=== PATIENT | female | born 1935 | race Caucasian/White ===

== ENCOUNTER 2018-08-01 15:44 | Outpatient (CLI) | payer OTHER | END 2018-08-01 15:45 | disposition home or self-care (01) | LOC: LAB 15:44 | DX: Z51.81 Encounter for therapeutic drug level monitoring (principal); Z79.01 Long term (current) use of anticoagulants; I48.1 Persistent atrial fibrillation | CPT/HCPCS: 36415; 85610 ==

== ENCOUNTER 2018-08-08 15:24 | Outpatient (CLI) | END 2018-08-08 15:25 | disposition home or self-care (01) | LOC: LAB 15:24 | DX: I48.2 Chronic atrial fibrillation (principal); Z51.81 Encounter for therapeutic drug level monitoring; Z79.01 Long term (current) use of anticoagulants | CPT/HCPCS: 36415; 85610 ==

== ENCOUNTER 2018-08-15 14:06 | Outpatient (CLI) | END 2018-08-15 14:07 | disposition home or self-care (01) | LOC: LAB 14:06 | PROVIDERS: ATTEND Family Medicine | DX: I48.1 Persistent atrial fibrillation (principal); Z51.81 Encounter for therapeutic drug level monitoring; Z79.01 Long term (current) use of anticoagulants | CPT/HCPCS: 36415; 85610 ==

== ENCOUNTER 2018-08-22 13:08 | Outpatient (CLI) | payer OTHER | END 2018-08-22 13:09 | disposition home or self-care (01) | LOC: LAB 13:08 | PROVIDERS: ATTEND Family Medicine | DX: Z51.81 Encounter for therapeutic drug level monitoring (principal); Z79.01 Long term (current) use of anticoagulants; I48.1 Persistent atrial fibrillation | CPT/HCPCS: 36415; 85610 ==

== ENCOUNTER 2018-08-31 12:56 | Outpatient (CLI) | END 2018-08-31 12:57 | disposition home or self-care (01) | LOC: LAB 12:56 | PROVIDERS: ATTEND Family Medicine | DX: Z51.81 Encounter for therapeutic drug level monitoring (principal); Z79.01 Long term (current) use of anticoagulants; I48.1 Persistent atrial fibrillation | CPT/HCPCS: 36415; 85610 ==

== ENCOUNTER 2018-09-07 16:09 | Outpatient (CLI) | END 2018-09-07 16:10 | disposition home or self-care (01) | LOC: LAB 16:09 | PROVIDERS: ATTEND Family Medicine | DX: Z51.81 Encounter for therapeutic drug level monitoring (principal); Z79.01 Long term (current) use of anticoagulants; I48.1 Persistent atrial fibrillation | CPT/HCPCS: 36415; 85610 ==

== ENCOUNTER 2018-09-26 14:14 | Outpatient (CLI) | END 2018-09-26 14:15 | disposition home or self-care (01) | LOC: LAB 14:14 | PROVIDERS: ATTEND Family Medicine | DX: Z51.81 Encounter for therapeutic drug level monitoring (principal); Z79.01 Long term (current) use of anticoagulants; I48.1 Persistent atrial fibrillation | CPT/HCPCS: 36415; 85610 ==

== ENCOUNTER 2022-09-01 11:32 | Inpatient (IN) ==
[2022-09-01 14:26] LABS: SARS COV-2 RNA RAPID NAAT NEGATIVE (NEGATIVE)
[2022-09-01 14:35] LABS: BASOPHILS # (AUTO) 0.1 K/uL (0-0.2); BASOPHILS % (AUTO) 1.1 % (0.0-3.0); EOSINOPHILS # (AUTO) 0.5 K/ul (0.0-0.7); EOSINOPHILS % (AUTO) 8.4 % (0.0-7.0); HEMOGLOBIN 12.7 g/dl (12.0-16.0); IMMATURE GRANULOCYTE % (AUTO) 0.4 % (0.0-5.0); LYMPHOCYTES # (AUTO) 1.1 K/uL (0.60-3.4); LYMPHOCYTES % (AUTO) 19.5 (10.0-50.0); MEAN CORPUSCULAR HEMOGLOBIN 32.8 pg (27.0-31.0); MEAN CORPUSCULAR HGB CONC 34.3 (31.8-35.4); MEAN CORPUSCULAR VOLUME 95.6 fl (81.0-99.0); MONOCYTES # (AUTO) 0.6 K/uL (0.4-2.0); MONOCYTES % (AUTO) 10.9 (0-10); NEUTROPHILS # (AUTO) 3.4 K/ul (2.0-6.9); NEUTROPHILS % (AUTO) 59.7 % (42.2-75.2); PLATELET COUNT 199 10^3/uL (140-440); RDW COEFFICIENT OF VARIATION 12.1 % (11.6-14.8); RED BLOOD COUNT 3.87 10^6/ul (4.20-5.40)
[2022-09-01 14:42] LABS: BILIRUBIN,URINE Negative (NEGATIVE); CLARITY,URINE Clear (CLEAR); COLOR,URINE Yellow (YELLOW); GLUCOSE, URINE (UA) Negative (NEGATIVE); KETONES,URINE Negative (NEGATIVE); LEUKOCYTE ESTERASE ,URINE Trace (NEGATIVE); NITRITE,URINE Negative (NEGATIVE); PROTEIN,URINE Negative (NEGATIVE); URINE, BLOOD Negative (NEGATIVE); UROBILINOGEN,URINE 0.2 (0.2)
[2022-09-01 14:51] VITALS: BMI 32.4
[2022-09-01 14:51] LABS: ALANINE AMINOTRANSFERASE 14.8 U/L (0-35); ALBUMIN 4.27 g/dL (3.5-5.0); ASPARTATE AMINO TRANSFERASE 30.1 U/L (14-36); BILIRUBIN,TOTAL 0.63 mg/dL (0.2-1.3); BLOOD UREA NITROGEN 5.8 mg/dL (7-17); CALCIUM 8.67 mg/dL (8.4-10.2); CARBON DIOXIDE 30.3 mmol/L (22-30.0); CHLORIDE 95.9 mmol/L (98-107); CREATININE 0.67 mg/dL (0.60-1.30); GLUCOSE 108.7 mg/dL (74-106); POTASSIUM 4.12 mmol/L (3.5-5.1); SODIUM 130.4 mmol/L (134.5-145); TOTAL PROTEIN 7.15 g/dL (6.3-8.2)
--- NOTE | 2022-09-01 15:39 | DI ---
EXAM: SINGLE VIEW OF THE CHEST HISTORY: Shortness of breath. COMPARISON: Chest x-ray 07/03/2020 FINDINGS: Cardiomediastinal silhouette is unchanged at upper limit of normal for size. There is no p neumothorax or effusion. There is no consolidation, nodule or mass. The osseous structures demonstr ate degenerative disease. There are calcified granulomas. There is stable mild interstitial opaciti es. IMPRESSION: No acute cardiopulmonary process with stable mild cardiomegaly
--- NOTE | 2022-09-01 15:50 | CT ---
CT ABDOMEN AND PELVIS HISTORY: Flank pain. TECHNIQUE: Contiguous axial tomographic sections were obtained from the dome of the diaphragm throug h the ischial tuberosities. Coronal and sagittal reformats were then performed. Automatic exposure control was utilized for dose reduction technique. COMPARISON: None. FINDINGS: There is limited evaluation of the visceral organs/structures in the absence of IV contras t. LOWER CHEST: There is multichamber cardiomegaly and heavy calcifications of the mitral valve. LIVER: No gross masses. Limited evaluation. Punctate multi focal calcified granulomata noted. Hepat ic nodularity suggests underlying cirrhosis. GALLBLADDER/BILIARY: There is cholelithiasis. Sub-centimeter stones are present. Multiple stones ar e packed in the distal CBD and mid CBD as well as the cystic duct. No upstream dilatation detected. PANCREAS: Normal contour. Normal caliber main pancreatic duct. SPLEEN: Multiple granuloma are present. Normal size. ADRENALS: Normal size and shape without nodularity. KIDNEYS: Absent left kidney. There are several subcentimeter hypodensities in the right kidney too s mall to characterize by CT but probably representing cysts. Half exophytic low density probable cyst 12 mm anterior aspect right kidney. No renal stones. No hydronephrosis. No right ureteral dilatat ion. There is no significant perinephric stranding to suggest pyelonephritis as questioned clinicall y. The left nephrectomy bed is unremarkable. Limited evaluation for mass. PERITONEUM/MESENTERY: No free fluid, free air or mesenteric inflammatory change. No loculated fluid c ollection. VASCULATURE: Nonaneurysmal aorta. The IVC is distended possibly on the basis of cor pulmonale . [place] evaluation. LYMPH NODES: No pathologically enlarged lymph nodes by CT size criteria. BOWEL: No bowel obstruction. The appendix is identified and has a normal diameter. Variable decompres ginny of the colon limits evaluation, no colitis or acute diverticulitis detected. URINARY BLADDER: The bladder has normal contours and wall thickness. REPRODUCTIVE: Multiple calcified fibroids are noted throughout the uterus. 2 cm low density focus le ft ovary. Small fat containing umbilical hernia. Multilevel degenerative disc disease of the lumbar spine. Moderate superior endplate compression deformity of L1, age indeterminate. Multilevel facet arthrosis lumbar spine. Left hip dynamic hip screw and intramedullary lizette noted. MUSCULOSKELETAL: No acute or suspicious osseous lesions. IMPRESSION: 1. Choledocholithiasis. Multiple stones packed within the CBD. There is a cystic duct stone as well as multiple stones within the otherwise unremarkable gallbladder. No evidence of acute cholecystiti s. 2. Nodular hepatic contour may suggest cirrhosis. 3. Right renal hypodensities suggesting cysts. No evidence of renal calculus or hydronephrosis. No ureteral calculus. Solitary right kidney. 4. Multichamber cardiomegaly, cyst findings suggest cor pulmonale 5. Age indeterminate superior endplate compression deformity of L1, correlate clinically. 6. Other ancillary findings as above. All CT scans are performed using dose optimization techniques as appropriate to the performed exam an d include at least one of the following: Automated exposure control, adjustment of the mA and/or kV according t o size, and the use of iterative reconstruction technique.
[2022-09-01] MEDS: ROCEPHIN 1 GM/50 ML D5W 1 GM/50 ML BAG IV SCH (16:17)
[2022-09-01] MEDS: SORBITRATE PO SCH (18:00)
[2022-09-01] MEDS: NEURONTIN PO SCH (21:13)
[2022-09-01] MEDS: LOVENOX SUBCUT SCH (21:13)
[2022-09-01] MEDS: SEROQUEL PO SCH (21:13)
[2022-09-02] MEDS ORDERED: TYLENOL PO PRN (05:20)
[2022-09-02] MEDS: ROCEPHIN 1 GM/50 ML D5W 1 GM/50 ML BAG IV SCH (08:41)
[2022-09-02] MEDS: NEURONTIN PO SCH ×3 (08:42→20:16)
[2022-09-02] MEDS: SORBITRATE PO SCH ×2 (08:42→14:51)
[2022-09-02] MEDS: ALDACTONE PO SCH (08:42)
--- NOTE | 2022-09-02 11:14 | RS.PTINEVL ---
Subjective Patient information Date of Evaluation: 09/02/22 Date of Arrival on Unit: 09/01/22 Admitted From:: Home Diagnosis: pyelonephritis, encephalopathy Usual Living Arrangement: With Others Living Arrangement Comments: has helpers during the day and son stays with her at night. Home Environment: House and Level/No stairs Medical History: Hypertension, COPD, CHF, Arthritis (OA as well as RA) and Vascular Disease (PVD) Medical History Comments:: ascites, alcohol abuse, Afib, depressive disorder, anxiety, mitral regurgitation, neuropathy, ulcerative colitis Medications: see chart Subjective Information/ Patient Comments:: pt states that she hasn't walked much since she had a fall 3 yrs ago. States that she uses rolling walker at home and amb with son to help her. pt reports she uses a w/c if she leaves her home. Level of function Prior to this admission, the patient could do the following:: Partially Dependent Ambulation Abilities prior to this admission: pt had assist with ADL's and amb with someone with her with rwx. Current Equipment Used at Home: wheelchair, shower chair, Interventions Objective Patient Orientation: Person and Place Current Interventions: IV's and Telemetry Observation: Dark hemosiderin stain BLE with edema noted in BLE non pitting Range of Motion ROM Right Upper Extremity AROM: WFL's Left Upper Extremity AROM: WFL's Right Lower Extremity AROM: WFL's Left Lower Extremity AROM: WFL's Muscle Strength Muscle Strength Right Upper Extremity: Mild Weakness (grossly 4/5 ) Left Upper Extremity: Mild Weakness (grossly 4/5 ) Right Lower Extremity: Mild Weakness (hip flex 4-/5 ,knee flex/ext 4/5 ankle 4/5) Left Lower Extremity: Mild Weakness Comments:: hip flex 4-/5, knee flex/ext 3+/5, ankle 4/5 Sensation Sensation Right Upper Extremity: Intact/Normal Left Upper Extremity: Intact/Normal Right Lower Extremity: Intact/Normal Left Lower Extremity: Intact/Normal Palpation Palpation Findings: Tenderness (L knee ) Balance Sitting Balance and Reactions Static Sitting Balance: Fair Dynamic Sitting Balance: Fair Standing Balance and Reactions Static Standing Balance: Poor Dynamic Standing Balance: Poor Functional Mobility Bed Mobility Comments:: pt seen sitting up in chair Transfers Sit to Stand: Min Assist Stand to Sit: Min Assist Stand Pivot Transfers: Min Assist Safety Awareness Safety Awareness: Poor IVETTE INDEX SCORE: n/a Ambulation Ambulation Assistive Device Used: Rolling Walker Orthotic/Prosthetic Device: No Distance: 15ft Assistance needed with Ambulation: Min Assist (x 1 +1 for IV), 1 person assist a nd 2 person assist Quality of Ambulation: amb with min x 1 + 1 for IV Gait Deviations: Wide Based gait, Shuffling gait and Forward posture Ambulation Comments: pt amb with antalgic gait with difficulty advancing LLE. Factors Affecting Ambulation: Decreased Balance, Pain, Weakness, Decreased Coordination, Decreased Safety, Cognitive Status and Limited Endurance Treatment time Time with patient Length of Evaluation: 26 Total treatment time: 31 Patient Education Education Patient Education: Education of diagnosis and Home Exercise Program Teaching Recipient: Patient Teaching Methods: Discussion Assessment Assessment Problem List:: Decreased level of function, Requires training/education, Decreased safety/Risk of falls, Weakness, Pain limits previous level of function and Cognitive status limits abilities Rehab Potential: Fair Further Therapy Indicated?: Yes Candidate for Swing Bed for Therapy Services?: Feel pt may not be a candidate for swing bed due to prior level of function. Evaluation Complexity: HISTORY: Medium, EXAM OF BODY SYSTEMS: Medium, CLINICAL PRESENTATION: Medium and CLINICAL DECISION MAKING: Medium Patient's Goal(s): Be able to walk better (but I don't think I can) Short Term Goals GOAL #1: pt demonstrate rolling and scooting in bed with bedrails independently. Goal to be met by: 09/04/22 GOAL #2: Transfer sup to/from sit CGA Goal to be met by: 09/04/22 GOAL #3: Transfer sit to/from stand CGA Goal to be met by: 09/04/22 GOAL #4: pt amb with rwx with CGA to min x 1 50ft Goal to be met by: 09/04/22 GOAL #5: Improve BLE strength 4/5 Goal to be met by: 09/04/22 Manufacturing Intern Goals GOAL #1: Transfer sup to/from sit to/from stand SBA Goal to be met by: 09/06/22 GOAL #2: pt amb 75 ft with rwx with CGA x 1 Goal to be met by: 09/06/22 GOAL #3: Improve dyn stand balance fair- Goal to be met by: 09/06/22 Plan Plan of Care: Therapeutic EX and Therapeutic Activity Other:: gait training Frequency of Treatment: 1-2 X day, as tolerated Duration of Treatment: 5 days Anticipated Discharge Destination: Home Treatment Diagnosis (ICD 10 Codes): impaired balance R 26.81 gait difficulty R 26.2 L knee pain weakness M62.81 Has the Physician been added for Co-signature?: Yes
[2022-09-02] MEDS: LOVENOX SUBCUT SCH (20:15)
[2022-09-02] MEDS: SEROQUEL PO SCH (20:16)
[2022-09-03 04:56] LABS: BASOPHILS # (AUTO) 0.1 K/uL (0-0.2); EOSINOPHILS # (AUTO) 0.5 K/ul (0.0-0.7); EOSINOPHILS % (AUTO) 9.8 % (0.0-7.0); HEMOGLOBIN 12.1 g/dl (12.0-16.0); IMMATURE GRANULOCYTE % (AUTO) 0.4 % (0.0-5.0); LYMPHOCYTES # (AUTO) 1.3 K/uL (0.60-3.4); LYMPHOCYTES % (AUTO) 26.1 (10.0-50.0); MEAN CORPUSCULAR HEMOGLOBIN 32.5 pg (27.0-31.0); MEAN CORPUSCULAR HGB CONC 33.6 (31.8-35.4); MEAN CORPUSCULAR VOLUME 96.8 fl (81.0-99.0); MONOCYTES # (AUTO) 0.6 K/uL (0.4-2.0); NEUTROPHILS # (AUTO) 2.6 K/ul (2.0-6.9); NEUTROPHILS % (AUTO) 51.7 % (42.2-75.2); PLATELET COUNT 185 10^3/uL (140-440); RED BLOOD COUNT 3.72 10^6/ul (4.20-5.40); WHITE BLOOD COUNT 4.99 K/ul (4.6-10.2)
[2022-09-03 05:08] LABS: ALANINE AMINOTRANSFERASE 13.8 U/L (0-35); ALBUMIN 3.82 g/dL (3.5-5.0); ALKALINE PHOSPHATASE 117.5 U/L (53-141); ASPARTATE AMINO TRANSFERASE 28.1 U/L (14-36); BILIRUBIN,TOTAL 0.41 mg/dL (0.2-1.3); BLOOD UREA NITROGEN 7.7 mg/dL (7-17); CALCIUM 8.78 mg/dL (8.4-10.2); CARBON DIOXIDE 27.7 mmol/L (22-30.0); CREATININE 0.7 mg/dL (0.60-1.30); GLUCOSE 105.1 mg/dL (74-106); POTASSIUM 4.26 mmol/L (3.5-5.1); SODIUM 133.5 mmol/L (134.5-145); TOTAL PROTEIN 6.46 g/dL (6.3-8.2)
[2022-09-03] MEDS: ALDACTONE PO SCH (08:53)
[2022-09-03] MEDS: NEURONTIN PO SCH ×3 (08:54→20:25)
[2022-09-03] MEDS: SORBITRATE PO SCH ×2 (08:54→15:56)
[2022-09-03] MEDS ORDERED: NITROSTAT SL PRN (09:14)
[2022-09-03] MEDS ORDERED: ATROPINE SULFATE PFS IVP PRN (09:14)
[2022-09-03 09:15] LABS: CHOLESTEROL 164.7 mg/dL (0-200); HDL CHOLESTEROL 62.5 mg/dL (35-80); TRIGLYCERIDES 103.7 mg/dL (0-150)
[2022-09-03 09:47] LABS: THYROID STIMULATING HORMONE 2.72 uIU/L (0.465-4.68)
[2022-09-03] MEDS ORDERED: ELIQUIS PO ONE (15:30)
--- NOTE | 2022-09-03 15:51 | CONS ---
DATE OF CONSULTATION: 09/03/22 REASON FOR CONSULTATION: Atrial fibrillation HISTORY OF PRESENT ILLNESS: 87 year old white female hospitalized on 09/01/22 with acute pyelonephritis encephalopathy. Patient is a poor historian. REVIEW OF SYSTEMS: CONSTITUTIONAL: No fever or chills. Appetite seems to have improved. Generalized aches and pains. HEENT: Eyes: No visual changes. No eye pain. No eye discharge. ENT: No sinus drainage. No epistaxis. No sinus pain. No sore throat. No odynophagia. No ear pain. No congestion. RESPIRATORY: No cough, no congestion. No hemoptysis. No shortness of breath. CARDIOVASCULAR: No chest pain. No PND. No orthopnea. GASTROINTESTINAL: No abdominal pain. No nausea or vomiting. No diarrhea or constipation. No hematemesis. No hematochezia. GENITOURINARY: No urgency. No frequency. No dysuria. No hematuria. No obstructive symptoms. No discharge. No pain. No significant abnormal bleeding. MUSCULOSKELETAL: No musculoskeletal pain. No joint swelling. NEUROLOGICAL: No headache. No neck pain. No syncope. No seizures. No dizziness. PSYCHIATRIC: Not anxious. No depression. No suicidal thoughts. No homicidal thoughts. SKIN: No rash. No lesions. No wounds. ENDOCRINE: No unexplained weight loss. No weight gain. HEMATOLOGIC/LYMPHATIC: No anemia. No purpura. No petechiae. No prolonged or excessive bleeding. No palpable lymph nodes. MEDICATIONS: Gabapentin Sorbitrate Sinequan Aldactone ALLERGIES: PENICILLIN, NITROFURANTOIN, RED DYE, SULFA PAST MEDICAL HISTORY: Ascites Liver cirrhosis Atrial fib CHF COPD Depressive disorder GI problem Hypertension Mitral regurgitation Osteoearthritis Peripheral vascular disease Rheumatoid arthritis Seasonal allergies Ulcerative colitis SOCIAL/PERSONAL/FAMILY HISTORY: Patient lives by herself with the help of her daughter and son. Nonsmoker. No alcohol abuse. PHYSICAL EXAMINATION: GENERAL: The patient seems to be oriented to place and person. VITAL SIGNS: Temperature 96.9, pulse 60, respiratory rate 16, blood pressure 122/50, pulse ox 95%. HEENT: Head normocephalic, atraumatic. Eyes: Extraocular muscles are intact. Pupils are equal, round and reactive to light and accommodation. Ears: No lesions. Nose appeared normal. Throat: No exudate or erythema. NECK: Supple. LUNGS: Decreased breath sounds but clear No JVD, no carotid bruit. HEART: S1, S2, no S3. ABDOMEN: No ascites. EXTREMITIES: +1 bilaterally. Dark pigmented lower right extremity with indurated edema. NEUROLOGIC: No focal deficit. Cranial nerves II through XII are grossly intact. No headache, no double vision or headache. SKIN: Not dry. Intact. Turgor - normal. LYMPHATIC: No palpable lymph nodes/no lymphedema. MUSCULOSKELETAL: Normal joints with no swelling. Muscle tone is normal. EKG showed atrial fibrillation with R wave progression. Echo showed LVH with enlarged LA cavity, also RA cavities are enlarged. LV contractility with LVH specific mitral valve annulus, color flow showed moderate to severe tricuspid regurg and moderate mitral regurg. LABS: All reviewed. Creatinine and BUN and liver profile normal. Hemoglobin 12, hematocrit 36. Patient has no history of GI bleed. Patient has no symptoms of CHF or coronary insufficiency. LV function and LV size normal. Edema which is chronic could be related to liver cirrhosis with ascites, with history of smoking. ASSESSMENT: 1. PYELONEPHRITIS ENCEPHALOPATHY SEEMS TO BE UNDER CONTROL 2. HISTORY OF ATRIAL FIBRILLATION 3. HISTORY OF CHF 4. HISTORY OF LIVER CIRRHOSIS RECOMMENDATIONS: 1. Continue all medicines including Aldactone. 2. Will add Eliquis 5 mg twice a day. 3. Educated about Eliquis with intracranial and GI bleed. 4. Advised no nonsteroidal anti-inflammatories. 5. Discussed with Dr. Head for Eliquis to be started on this patient. Thanks for referral. Will follow. MTDD
[2022-09-03] MEDS: SEROQUEL PO SCH (20:25)
[2022-09-04 06:41] VITALS: BP 151/78; RESP 19; TEMP 97
[2022-09-04] MEDS ORDERED: ELIQUIS PO SCH (09:00)
--- NOTE | 2022-09-04 09:02 | PCM.DC ---
Final Diagnosis: uti--proteus (from office culture), atrial fibrillation, common duct stones Physical Exam Appearance: Well-appearing Ill-appearing: None Pain Distress: None Eyes: FRANCIS, EOMI and Conjunctiva clear ENT: Ears normal, Nose normal and Oropharynx normal Neck: Supple Respiratory: Airway patent, Breath sounds clear and Breath sounds equal Cardiovascular: RRR, Pulses normal, No rub and Irregular rhythm GI/: Soft, Nontender, No masses and Bowel sounds normal Musculoskeletal: Normal strength, ROM intact, No edema and No calf tenderness Skin: Warm, Dry and Normal color Neurological: Sensation intact, Motor intact, Reflexes intact, Cranial nerves intact, Alert and Oriented Psychiatric: Affect appropriate and Mood appropriate Reason for Hospitalization: proteus in urine with encejphalopathy Prognosis/Condition at Discharge: fair Medications at Discharge: continue home meds plus add eliquis Lab/Diagnostics: hgb stable Follow-ups: she will see me tuesday in the office and awaiting gi referral to [facility](nursing staff states they will notify patient/family) Discharge Disposition: Home Hospital Course: she did well--her encephalopathy resolved--repeat urine cuture here was neg--was found to have afib--dr saldivar consulted and started on eliquis--ct revealed ? evidence of common duct stones and she was referred to [facility] (awaiting appt)--she was tolerating diet wituout jaundice or abd pain Plan: discharge with eliquis---will see me in the office next week and awaiting gi appt
[2022-09-04] MEDS: NEURONTIN PO SCH (09:34)
[2022-09-04] MEDS: SORBITRATE PO SCH (09:34)
[2022-09-04] MEDS: ALDACTONE PO SCH (09:34)
--- NOTE | 2022-09-06 07:06 | ECHO2D ---
Date of Exam: 09/03/2022 Ordering Physician: DR. RICHA MELARA Room #: 101 Reason for Echo: AFIB DX 20 YRS AGO, CHRONIC M-Mode Normal Adult Results LV Dimensions Normal Adult Results AoV Opening excursions >1.6 >1.6 LVEDD-base- 3.5-5.8 4.2 Ao root dimensions 2.0-3.7 3.3 LVESD-base- 3.1-4.6 L. Atrium dimensions 1.9-3.8 5.1 Post. Wall thickness 0.8-1.1 1.3 IV septum (thickness) 0.7-1.2 1.3 Post. Wall excursion 0.72-1.3 NORMAL Septal motion NORMAL Systolic motion R. Ventricular cavity 1.5-2.0 4.0 LVEF 60% 61% Paradoxical septal wall motion NORMAL 2-D : ENLARGED RIGHT VENTRICLE, LEFT ATRIAL AND RIGHT ATRIAL CAVITIES--LEFT VENTRICLE SIZE AND LEFT VENTRICLE CONTRACTILITY--NORMAL, CALCIFIC MITRAL VALVE ANNULUS, NO EFFUSION, NO THROMBUS COLOR FLOW: MODERATE TO SEVERE TRICUSPID REGURGITATION, MODERATE MITRAL REGURGITATION M-MODE: MV: HEAVILY CALCIFIC MITRAL VALVE ANNULUS AV: NORMAL TV: NORMAL PV: NORMAL CHAMBER SIZE: ENLARGED RIGHT ATRIAL, RIGHT VENTRICLE AND LEFT ATRIAL CAVIVIES WALL MOTION: NORMAL PERICARDIUM: NORMAL INTERPRETATION: 1. LEFT VENTRICLE HYPERTROPHY WITH ENLARGED LEFT ATRIAL CAVITY (5.1 CM) 2. HEAVILY CALCIFIC MITRAL VALVE ANNULUS 3. NORMAL LEFT VENTRICLE SIZE AND LEFT VENTRICLE CONTRACTILITY 4. ENLARGED RIGHT VENTRICLE, RIGHT ATRIAL AND LEFT ATRIAL CAVITIES 5. MODERATE TO SEVERE TRICUSPID REGURGITATION AND MODERATE MITRAL REGURGITATION MTDD
--- NOTE | 2022-09-07 06:21 | CONS ---
DATE OF SERVICE: 09/04/22 CONSULT FOLLOWUP REASON FOR CONSULTATION: ATRIAL FIBRILLATION SUBJECTIVE: 87-year-old white female hospitalized with pyelonephritis encephalopathy. The patient's condition has improved remarkably. The patient was laying in the chair, ready to go home. . REVIEW OF SYSTEMS: CONSTITUTIONAL: No night sweats. No fatigue, malaise, lethargy. No fever or chills. HEENT: Eyes: No visual changes. No eye pain. No eye discharge. ENT: No runny nose. No epistaxis. No sinus pain. No sore throat. No odynophagia. No ear pain. No congestion. RESPIRATORY: No cough, no congestion. No hemoptysis. CARDIOVASCULAR: No angina symptoms. No CHF symptoms. No atypical chest pain for CAD. No palpitations. No shortness of breath. GASTROINTESTINAL: No abdominal pain. No nausea or vomiting. No diarrhea or constipation. No hematemesis. No hematochezia. GENITOURINARY: No urgency. No frequency. No dysuria. No hematuria. No obstructive symptoms. No discharge. No pain. No significant abnormal bleeding. MUSCULOSKELETAL: No musculoskeletal pain. No joint swelling. No arthritis. NEUROLOGICAL: No headache. No neck pain. No syncope. No seizures. No dizziness. PSYCHIATRIC: Not anxious. No depression. No suicidal thoughts. No homicidal thoughts. SKIN: No rash. No lesions. No wounds. ENDOCRINE: No unexplained weight loss. No weight gain. HEMATOLOGIC/LYMPHATIC: No anemia. No purpura. No petechiae. No prolonged or excessive bleeding. No palpable lymph nodes. PHYSICAL EXAMINATION: VITAL SIGNS: Temperature 97.8, pulse 50, respiratory rate 20, BP 134/66, pulse ox 96% on room air. HEENT: Head normocephalic, atraumatic. Eyes: Extraocular muscles are intact. Pupils are equal, round and reactive to light and accommodation. Ears: No lesions. Nose appeared normal. Throat: No exudate or erythema. NECK: Supple. No JVD, no carotid bruit. No lymphadenopathy or thyromegaly. LUNGS: Decreased breath sounds but clear to auscultation. Percussion note normal. Chest symmetrical. HEART: S1, S2, no S3. Somewhat irregular. No murmur. No cyanosis or clubbing. No ascites. Pulses: Dorsalis pedis and posterior tibial pulses +1 to +2 bilaterally. ABDOMEN: Soft. Nontender. Bowel sounds active. No CVA tenderness. No mass felt. EXTREMITIES: No edema. Full range of motion of all extremities, equal. NEUROLOGIC: No focal deficit. Cranial nerves II through XII are grossly intact. No headache, no double vision or headache. SKIN: Not dry. Intact. Turgor - normal. LYMPHATIC: No palpable lymph nodes/no lymphedema. MUSCULOSKELETAL: Normal joints with no swelling. Muscle tone is normal. ASSESSMENT: Atrial fibrillation, to me it is chronic. The patient was explained about Eliquis and side effects, especially intracranial bleed and GI bleed. The patient is strongly advised not to take any nonsteroidal antiinflammatory. The patient says she never had any problem with the GI bleed or any kind of bleeding in the past. She remembered that she use to be on blood thinner when she was in [place] but she has changed so many doctors in the past years that she doesn't remember when it was stopped. The patient was discussed with Dr. Head yesterday. She seems to be medically stable. Cardiovascular short stable. Condition is stable. TIME SPENT: INTERMEDIATE MTDD
== END 2022-09-04 12:00 | disposition home or self-care (01) | DRG 690 ==
LOC: LAB 11:32 → MEDSURG A 14:00 → SCU 09-03 18:10 → MEDSURG B 09-03 18:11
PROVIDERS: ADMIT Family Medicine; ATTEND Family Medicine
DX: N10 Acute pyelonephritis; Z51.81 Encounter for therapeutic drug level monitoring; Z79.899 Other long term (current) drug therapy; I11.0 Hypertensive heart disease with heart failure; I50.9 Heart failure, unspecified; M06.9 Rheumatoid arthritis, unspecified; N39.0 Urinary tract infection, site not specified; I48.20 Chronic atrial fibrillation, unspecified; K80.50 Calculus of bile duct without cholangitis or cholecystitis without obstruction; Z20.822 Contact with and (suspected) exposure to COVID-19; F32.A Depression, unspecified; Z87.19 Personal history of other diseases of the digestive system; G93.40 Encephalopathy, unspecified; J44.9 Chronic obstructive pulmonary disease, unspecified; M19.90 Unspecified osteoarthritis, unspecified site; B96.4 Proteus (mirabilis) (morganii) as the cause of diseases classified elsewhere; I73.9 Peripheral vascular disease, unspecified

== ENCOUNTER 2024-06-01 13:08 | Inpatient (IN) ==
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
--- NOTE | 2024-06-01 13:55 | DI ---
EXAM: XR LEFT ELBOW. HISTORY: Pain. TECHNIQUE: 3 views. Frontal, lateral, and oblique. COMPARISON: None. FINDINGS: Bones: No acute fracture. Osteopenia. Joints: Normal alignment. Joint spaces are maintained. No effusion. Soft tissues: Vascular calcification. Tiny periarticular calcification about the ulnar trochlear join t. Other: None. IMPRESSION: 1. No acute findings. Mild degenerative change. Osteopenia.
[2024-06-01 14:00] LABS: BASOPHILS % (AUTO) 0.5 % (0.0-3.0); EOSINOPHILS # (AUTO) 0.1 K/ul (0.0-0.7); EOSINOPHILS % (AUTO) 0.9 % (0.0-7.0); HEMATOCRIT 36.5 % (37.0-47.0); HEMOGLOBIN 12.1 g/dl (12.0-16.0); IMMATURE GRANULOCYTE % (AUTO) 0.4 % (0.0-5.0); LYMPHOCYTES # (AUTO) 0.5 K/uL (0.60-3.4); LYMPHOCYTES % (AUTO) 6.4 (10.0-50.0); MEAN CORPUSCULAR HEMOGLOBIN 30.8 pg (27.0-31.0); MEAN CORPUSCULAR HGB CONC 33.2 (31.8-35.4); MEAN CORPUSCULAR VOLUME 92.9 fl (81.0-99.0); MONOCYTES # (AUTO) 0.8 K/uL (0.4-2.0); MONOCYTES % (AUTO) 10.5 (0-10); NEUTROPHILS # (AUTO) 6.1 K/ul (2.0-6.9); NEUTROPHILS % (AUTO) 81.3 % (42.2-75.2); PLATELET COUNT 252 10^3/uL (140-440); RDW COEFFICIENT OF VARIATION 12.8 % (11.6-14.8); RED BLOOD COUNT 3.93 10^6/ul (4.20-5.40); WHITE BLOOD COUNT 7.49 K/ul (4.6-10.2)
--- NOTE | 2024-06-01 14:01 | DI ---
EXAM: LEFT WRIST THREE VIEWS HISTORY: Wrist pain IMPRESSION: There is a faint oblique lucency at the distal lateral aspect of the radius which probably represents arthritic change and prominent trabecular markings although a nondisplaced fracture at this level is not excluded. Correlate clinically. No other acute findings are considered. No joint dislocation. Moderately severe arthritis. - - - - -
[2024-06-01 14:21] LABS: ALANINE AMINOTRANSFERASE 12.9 U/L (0-35); ALBUMIN 3.61 g/dL (3.5-5.0); ALKALINE PHOSPHATASE 154.8 U/L (53-141); ASPARTATE AMINO TRANSFERASE 32.4 U/L (14-36); BILIRUBIN,TOTAL 1.54 mg/dL (0.2-1.3); BLOOD UREA NITROGEN 5.9 mg/dL (7-17); CALCIUM 8.81 mg/dL (8.4-10.2); CARBON DIOXIDE 31.2 mmol/L (22-30.0); CREATINE KINASE 20.9 U/L (30-135); CREATININE 0.55 mg/dL (0.60-1.30); GLUCOSE 118.3 mg/dL (74-106); SODIUM 128.4 mmol/L (134.5-145); TOTAL PROTEIN 6.75 g/dL (6.3-8.2)
[2024-06-01 14:30] LABS: POTASSIUM 2.71 mmol/L (3.5-5.1)
[2024-06-01 14:33] LABS: TROPONIN I 0.014 ng/ml (0.0000-0.120)
[2024-06-01 15:36] LABS: MOLECULAR FLU A NEGATIVE BY NAAT (NEGATIVE); MOLECULAR FLU B NEGATIVE BY NAAT (NEGATIVE); SARS COV-2 RNA RAPID NAAT NEGATIVE (NEGATIVE)
[2024-06-01] MEDS: SODIUM CHLORIDE 1,000 ML IV STA (16:00)
[2024-06-01] MEDS: K-DUR PO STA (16:22)
--- NOTE | 2024-06-01 16:36 | DI ---
EXAM: RADIOGRAPHS, RIGHT WRIST HISTORY: Right wrist pain. COMPARISON: None. TECHNIQUE: Three views. FINDINGS: Bone mineralization decreased. No fracture or dislocation. Moderate joint space narrowin g and spurring at the first carpal metacarpal with mild changes throughout other joints. Chondrocalc inosis noted at multiple locations wrist. No erosions are seen. Atherosclerotic calcifications are present. IMPRESSION: 1. 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 2. Chondrocalcinosis.
[2024-06-01 17:27] VITALS: BMI 25.7
[2024-06-01] MEDS: LACTATED RINGERS 1,000 ML IV SCH (17:49)
[2024-06-01] MEDS: POTASSIUM CHLORIDE 20 MEQ/100 ML PREMIX 40 MEQ/200 ML BAG IV ONE (17:52)
[2024-06-01 20:56] LABS: BILIRUBIN,URINE Negative (NEGATIVE); CLARITY,URINE Clear (CLEAR); COLOR,URINE Yellow (YELLOW); GLUCOSE, URINE (UA) Negative (NEGATIVE); KETONES,URINE 1+ (NEGATIVE); LEUKOCYTE ESTERASE ,URINE 1+ (NEGATIVE); NITRITE,URINE Negative (NEGATIVE); PH,URINE 6.5 (5-9); PROTEIN,URINE Negative (NEGATIVE); URINE, BLOOD Negative (NEGATIVE); UROBILINOGEN,URINE 0.2 (0.2)
[2024-06-01 21:01] LABS: BACTERIA,URINE TRACE (NOT PRESENT); URINE RBC, MICROSCOPIC 0-2 (0-2)
[2024-06-01 21:02] LABS: YEAST,URINE TRACE (NOT PRESENT)
[2024-06-01] MEDS: CLEOCIN PO SCH (21:17)
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
[2024-06-02] MEDS: XANAX PO PRN (05:11)
[2024-06-02 05:25] LABS: BASOPHILS % (AUTO) 0.5 % (0.0-3.0); EOSINOPHILS # (AUTO) 0.2 K/ul (0.0-0.7); EOSINOPHILS % (AUTO) 2.2 % (0.0-7.0); HEMATOCRIT 36.7 % (37.0-47.0); HEMOGLOBIN 12.1 g/dl (12.0-16.0); IMMATURE GRANULOCYTE # (AUTO) 0.1 (0.0-1.0); IMMATURE GRANULOCYTE % (AUTO) 0.6 % (0.0-5.0); LYMPHOCYTES # (AUTO) 0.7 K/uL (0.60-3.4); LYMPHOCYTES % (AUTO) 8.3 (10.0-50.0); MEAN CORPUSCULAR HEMOGLOBIN 30.9 pg (27.0-31.0); MEAN CORPUSCULAR VOLUME 93.9 fl (81.0-99.0); MONOCYTES % (AUTO) 12.3 (0-10); NEUTROPHILS % (AUTO) 76.1 % (42.2-75.2); PLATELET COUNT 267 10^3/uL (140-440); RDW COEFFICIENT OF VARIATION 13.2 % (11.6-14.8); RED BLOOD COUNT 3.91 10^6/ul (4.20-5.40); WHITE BLOOD COUNT 7.86 K/ul (4.6-10.2)
[2024-06-02 05:39] LABS: ALANINE AMINOTRANSFERASE 13.2 U/L (0-35); ALBUMIN 3.51 g/dL (3.5-5.0); ALKALINE PHOSPHATASE 149.7 U/L (53-141); ASPARTATE AMINO TRANSFERASE 31.9 U/L (14-36); BILIRUBIN,TOTAL 1.61 mg/dL (0.2-1.3); BLOOD UREA NITROGEN 5.9 mg/dL (7-17); CALCIUM 8.81 mg/dL (8.4-10.2); CHLORIDE 93.9 mmol/L (98-107); CREATININE 0.54 mg/dL (0.60-1.30); GLUCOSE 118.3 mg/dL (74-106); POTASSIUM 3.08 mmol/L (3.5-5.1); TOTAL PROTEIN 6.5 g/dL (6.3-8.2)
[2024-06-02] MEDS: TYLENOL PO PRN (08:22)
[2024-06-02] MEDS: IMDUR PO SCH (09:29)
[2024-06-02] MEDS: NEURONTIN PO SCH (09:29)
[2024-06-02] MEDS: K-DUR PO ONE (09:30)
[2024-06-02] MEDS: LOVENOX SUBCUT SCH (09:30)
[2024-06-02] MEDS: POTASSIUM CHLORIDE 20 MEQ/100 ML PREMIX 40 MEQ/200 ML BAG IV ONE (09:30)
[2024-06-02] MEDS: NYSTOP POWDER TP SCH (10:21)
[2024-06-02] MEDS: ULTRAM PO PRN (11:47)
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
[2024-06-03 05:03] LABS: BASOPHILS # (AUTO) 0.1 K/uL (0-0.2); BASOPHILS % (AUTO) 0.7 % (0.0-3.0); EOSINOPHILS # (AUTO) 0.3 K/ul (0.0-0.7); HEMATOCRIT 33.7 % (37.0-47.0); HEMOGLOBIN 10.9 g/dl (12.0-16.0); IMMATURE GRANULOCYTE # (AUTO) 0.1 (0.0-1.0); IMMATURE GRANULOCYTE % (AUTO) 0.9 % (0.0-5.0); LYMPHOCYTES # (AUTO) 0.6 K/uL (0.60-3.4); LYMPHOCYTES % (AUTO) 7.2 (10.0-50.0); MEAN CORPUSCULAR HEMOGLOBIN 30.9 pg (27.0-31.0); MEAN CORPUSCULAR HGB CONC 32.3 (31.8-35.4); MEAN CORPUSCULAR VOLUME 95.5 fl (81.0-99.0); MONOCYTES # (AUTO) 1.1 K/uL (0.4-2.0); MONOCYTES % (AUTO) 12.6 (0-10); NEUTROPHILS # (AUTO) 6.6 K/ul (2.0-6.9); NEUTROPHILS % (AUTO) 75.6 % (42.2-75.2); PLATELET COUNT 263 10^3/uL (140-440); RDW COEFFICIENT OF VARIATION 13.4 % (11.6-14.8); RED BLOOD COUNT 3.53 10^6/ul (4.20-5.40); WHITE BLOOD COUNT 8.66 K/ul (4.6-10.2)
[2024-06-03 05:20] LABS: ALBUMIN 3.15 g/dL (3.5-5.0); ALKALINE PHOSPHATASE 134.3 U/L (53-141); ASPARTATE AMINO TRANSFERASE 34.8 U/L (14-36); BILIRUBIN,TOTAL 1.11 mg/dL (0.2-1.3); BLOOD UREA NITROGEN 13.8 mg/dL (7-17); CALCIUM 8.84 mg/dL (8.4-10.2); CARBON DIOXIDE 26.9 mmol/L (22-30.0); CHLORIDE 95.4 mmol/L (98-107); CREATININE 0.79 mg/dL (0.60-1.30); GLUCOSE 125.3 mg/dL (74-106); POTASSIUM 4.24 mmol/L (3.5-5.1); SODIUM 128.7 mmol/L (134.5-145); TOTAL PROTEIN 5.97 g/dL (6.3-8.2)
[2024-06-03] MEDS: MYLANTA XTRA STRENGTH 30ML CUP PO PRN (08:22)
[2024-06-03] MEDS: DOXYCYCLINE HYCLATE PO SCH (10:14)
[2024-06-03] MEDS: SODIUM CHLORIDE 1,000 ML IV SCH (10:14)
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
[2024-06-03] MEDS: LEVAQUIN PO SCH (12:46)
--- NOTE | 2024-06-03 14:45 | DI ---
EXAM: LEFT SHOULDER RADIOGRAPH. HISTORY: Pain. TECHNIQUE: Three views. Frontal internal rotation, frontal external rotation, and scapular Y-view. COMPARISON: 09/15/2023. FINDINGS: Bones: No acute fracture. Chronic, healed fracture of the humeral neck.. Chronic deformity and degen erative sclerotic changes of the humeral head. Joints: Normal alignment. Narrowing of the glenohumeral joint. Soft tissues: Unremarkable. Other: Coarse interstitial markings are stable. IMPRESSION: 1. No acute findings. 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
[2024-06-03] MEDS: PROTONIX IVP ONE (14:47)
[2024-06-03] MEDS: SODIUM CHLORIDE PO SCH (14:47)
[2024-06-04 04:54] LABS: BASOPHILS # (AUTO) 0.1 K/uL (0-0.2); BASOPHILS % (AUTO) 0.6 % (0.0-3.0); EOSINOPHILS # (AUTO) 0.6 K/ul (0.0-0.7); EOSINOPHILS % (AUTO) 7.6 % (0.0-7.0); HEMATOCRIT 33.1 % (37.0-47.0); HEMOGLOBIN 10.6 g/dl (12.0-16.0); IMMATURE GRANULOCYTE # (AUTO) 0.1 (0.0-1.0); IMMATURE GRANULOCYTE % (AUTO) 0.9 % (0.0-5.0); LYMPHOCYTES # (AUTO) 0.9 K/uL (0.60-3.4); LYMPHOCYTES % (AUTO) 11.4 (10.0-50.0); MEAN CORPUSCULAR HEMOGLOBIN 30.9 pg (27.0-31.0); MEAN CORPUSCULAR VOLUME 96.5 fl (81.0-99.0); MONOCYTES # (AUTO) 0.8 K/uL (0.4-2.0); MONOCYTES % (AUTO) 10.8 (0-10); NEUTROPHILS # (AUTO) 5.4 K/ul (2.0-6.9); NEUTROPHILS % (AUTO) 68.7 % (42.2-75.2); PLATELET COUNT 268 10^3/uL (140-440); RDW COEFFICIENT OF VARIATION 13.4 % (11.6-14.8); RED BLOOD COUNT 3.43 10^6/ul (4.20-5.40); WHITE BLOOD COUNT 7.81 K/ul (4.6-10.2)
[2024-06-04 05:08] LABS: ALANINE AMINOTRANSFERASE 11.9 U/L (0-35); ALBUMIN 3.04 g/dL (3.5-5.0); ALKALINE PHOSPHATASE 129.8 U/L (53-141); ASPARTATE AMINO TRANSFERASE 36.5 U/L (14-36); BILIRUBIN,TOTAL 0.93 mg/dL (0.2-1.3); BLOOD UREA NITROGEN 13.1 mg/dL (7-17); CALCIUM 9.05 mg/dL (8.4-10.2); CARBON DIOXIDE 26.9 mmol/L (22-30.0); CHLORIDE 97.4 mmol/L (98-107); CREATININE 0.69 mg/dL (0.60-1.30); GLUCOSE 106.8 mg/dL (74-106); POTASSIUM 4.55 mmol/L (3.5-5.1); SODIUM 129.7 mmol/L (134.5-145); TOTAL PROTEIN 6.02 g/dL (6.3-8.2)
[2024-06-04] MEDS: PRILOSEC PO SCH (05:11)
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
--- NOTE | 2024-06-04 16:29 | DI ---
EXAM: XR LEFT WRIST. HISTORY: Fracture? Left wrist pain. TECHNIQUE: 3 views. Frontal, lateral, and oblique. COMPARISON: No prior study is available for comparison. FINDINGS: Severe generalized osteopenia. The no fracture, dislocation or acute osseous process is seen. First carpal metacarpal joint moderate degenerative changes with joint space narrowing and articular cortex smooth diffuse sclerosis. Intercarpal and radiocarpal joint spaces are moderately narrowed. Triangular fibrocartilage complex scattered calcifications /degenerative chondrocalcinosis. Soft tissues diffuse atrophy. No radiopaque foreign bodies are seen. IMPRESSION: No left wrist fracture or acute osseous process is seen. Severe osteopenia. Left wrist multi-site degenerative changes described above.
[2024-06-05 05:35] LABS: BASOPHILS # (AUTO) 0.1 K/uL (0-0.2); BASOPHILS % (AUTO) 0.9 % (0.0-3.0); EOSINOPHILS # (AUTO) 0.8 K/ul (0.0-0.7); EOSINOPHILS % (AUTO) 10.3 % (0.0-7.0); HEMATOCRIT 34.8 % (37.0-47.0); IMMATURE GRANULOCYTE # (AUTO) 0.1 (0.0-1.0); IMMATURE GRANULOCYTE % (AUTO) 0.8 % (0.0-5.0); LYMPHOCYTES # (AUTO) 0.9 K/uL (0.60-3.4); LYMPHOCYTES % (AUTO) 12.8 (10.0-50.0); MEAN CORPUSCULAR HEMOGLOBIN 30.7 pg (27.0-31.0); MEAN CORPUSCULAR HGB CONC 31.6 (31.8-35.4); MEAN CORPUSCULAR VOLUME 97.2 fl (81.0-99.0); MONOCYTES # (AUTO) 0.9 K/uL (0.4-2.0); MONOCYTES % (AUTO) 11.9 (0-10); NEUTROPHILS # (AUTO) 4.7 K/ul (2.0-6.9); NEUTROPHILS % (AUTO) 63.3 % (42.2-75.2); PLATELET COUNT 286 10^3/uL (140-440); RDW COEFFICIENT OF VARIATION 13.3 % (11.6-14.8); RED BLOOD COUNT 3.58 10^6/ul (4.20-5.40); WHITE BLOOD COUNT 7.37 K/ul (4.6-10.2)
[2024-06-05 05:51] LABS: ALANINE AMINOTRANSFERASE 12.3 U/L (0-35); ALBUMIN 3.16 g/dL (3.5-5.0); ALKALINE PHOSPHATASE 136.2 U/L (53-141); BILIRUBIN,TOTAL 0.87 mg/dL (0.2-1.3); BLOOD UREA NITROGEN 11.4 mg/dL (7-17); CALCIUM 9.2 mg/dL (8.4-10.2); CARBON DIOXIDE 29.1 mmol/L (22-30.0); CHLORIDE 97.3 mmol/L (98-107); CREATININE 0.65 mg/dL (0.60-1.30); GLUCOSE 95.9 mg/dL (74-106); POTASSIUM 4.22 mmol/L (3.5-5.1); TOTAL PROTEIN 6.07 g/dL (6.3-8.2)
[2024-06-05] MEDS ORDERED: DUONEB NEB PRN (09:26)
[2024-06-05] MEDS: DUONEB NEB PRN (09:44)
[2024-06-05] MEDS: SOLU-MEDROL 40 MG IVP SCH (10:10)
[2024-06-05] MEDS: MIRALAX PO PRN (10:10)
--- NOTE | 2024-06-05 10:33 | DI ---
EXAM: CHEST, SINGLE VIEW HISTORY: Short of breath and wheezing COMPARISON: 09/01/2022 IMPRESSION: Cardiomediastinal contours appear within normal limits. There is diffuse interstitial p rominence with suggestion of peribronchial thickening. Bibasilar atelectasis. Correlate for bronchi olitis. There is no focal pulmonary consolidation. No pleural effusion or pneumothorax
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
[2024-06-06 05:33] VITALS: RESP 16
[2024-06-06 07:02] LABS: BASOPHILS % (AUTO) 0.2 % (0.0-3.0); EOSINOPHILS % (AUTO) 0.2 % (0.0-7.0); HEMATOCRIT 34.5 % (37.0-47.0); HEMOGLOBIN 11.1 g/dl (12.0-16.0); IMMATURE GRANULOCYTE # (AUTO) 0.1 (0.0-1.0); IMMATURE GRANULOCYTE % (AUTO) 1.3 % (0.0-5.0); LYMPHOCYTES # (AUTO) 0.4 K/uL (0.60-3.4); LYMPHOCYTES % (AUTO) 5.5 (10.0-50.0); MEAN CORPUSCULAR HEMOGLOBIN 30.8 pg (27.0-31.0); MEAN CORPUSCULAR HGB CONC 32.2 (31.8-35.4); MEAN CORPUSCULAR VOLUME 95.8 fl (81.0-99.0); MONOCYTES # (AUTO) 0.3 K/uL (0.4-2.0); MONOCYTES % (AUTO) 5.4 (0-10); NEUTROPHILS # (AUTO) 5.6 K/ul (2.0-6.9); NEUTROPHILS % (AUTO) 87.4 % (42.2-75.2); PLATELET COUNT 252 10^3/uL (140-440); RDW COEFFICIENT OF VARIATION 12.9 % (11.6-14.8); WHITE BLOOD COUNT 6.34 K/ul (4.6-10.2)
[2024-06-06 07:15] LABS: ALANINE AMINOTRANSFERASE 14.9 U/L (0-35); ALBUMIN 3.28 g/dL (3.5-5.0); ALKALINE PHOSPHATASE 149.3 U/L (53-141); BILIRUBIN,TOTAL 0.75 mg/dL (0.2-1.3); BLOOD UREA NITROGEN 13.5 mg/dL (7-17); CALCIUM 9.2 mg/dL (8.4-10.2); CARBON DIOXIDE 28.9 mmol/L (22-30.0); CHLORIDE 97.3 mmol/L (98-107); CREATININE 0.59 mg/dL (0.60-1.30); GLUCOSE 146.9 mg/dL (74-106); POTASSIUM 4.65 mmol/L (3.5-5.1); SODIUM 129.7 mmol/L (134.5-145); TOTAL PROTEIN 6.25 g/dL (6.3-8.2)
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
[2024-06-06 10:58] VITALS: BP 131/74; PULSE 66; TEMP 97.9
== END 2024-06-06 13:55 | DRG 923 ==
LOC: ED 13:08 → MEDSURG B 13:08
PROVIDERS: ADMIT Hospitalist; ATTEND Physician Assistant